=== PATIENT | female | born 1940 | race Asian ===

== ENCOUNTER 2022-03-27 09:32 | Inpatient (IN) | payer BC ==
[~2022-03-27] VITALS: Ht 149.9 cm; Wt 54.0 kg
[2022-03-27 11:05] LABS: BASOPHILS % (AUTO) 0.4 % (0-1); EOSINOPHILS # (AUTO) 0.1 X10'3 (0-0.9); HEMATOCRIT 39.3 % (35.0-45.0); HEMOGLOBIN 13.4 g/dl (12.0-16.0); LYMPHOCYTES # (AUTO) 1.8 X10'3 (1.1-4.8); LYMPHOCYTES % (AUTO) 16.9 % (21-51); MEAN CORPUSCULAR HEMOGLOBIN 32.2 PG (27.0-31.0); MEAN CORPUSCULAR HGB CONC 34.2 g/dL (33.0-36.5); MEAN CORPUSCULAR VOLUME 94.2 FL (78-98); MEAN PLATELET VOLUME 9.1 FL (7.4-10.4); MONOCYTES # (AUTO) 0.7 X10'3 (0-0.9); MONOCYTES % (AUTO) 6.4 % (2-12); NEUTROPHILS # (AUTO) 8.1 X10'3 (1.8-7.7); NEUTROPHILS % (AUTO) 75.3 % (42-75); PLATELET COUNT 215 X10'3 (140-440); RED BLOOD COUNT 4.17 X10'6 (4.20-5.60); RED CELL DISTRIBUTION WIDTH 12.3 % (11.5-14.5); WHITE BLOOD COUNT 10.7 X10'3 (4.5-11.0)
[2022-03-27] MEDS ORDERED: normal saline 1000ML IV soln IVB ONE (11:20)
[2022-03-27] MEDS ORDERED: ondansetron/PF 4mg/2ml inj IV ONE (11:20)
[2022-03-27 11:28] LABS: ALANINE AMINOTRANSFERASE 26 U/L (12-78); ALBUMIN 3.4 G/DL (3.4-5.0); ALKALINE PHOSPHATASE 85 IU/L (46-116); ANION GAP 10 (8-16); ASPARTATE AMINO TRANSFERASE 32 U/L (10-37); BILIRUBIN,TOTAL 0.3 MG/DL (0.1-1.0); BLOOD UREA NITROGEN 11 MG/DL (7-18); BUN/CREATININE RATIO 10.6 (6.6-38.0); CALCIUM 8.8 MG/DL (8.5-10.1); CHLORIDE 100 MMOL/L (99-107); CREATININE 1.04 MG/DL (0.40-0.90); GLUCOSE 94 MG/DL (70-104); LIPASE 122 U/L (73-393); POTASSIUM 3.2 MMOL/L (3.5-5.1); SODIUM 137 MMOL/L (135-145); TOTAL CARBON DIOXIDE 27.4 MMOL/L (24-32); TOTAL PROTEIN 6.9 G/DL (6.4-8.2); eGFR 51 ML/MIN
[2022-03-27] MEDS ORDERED: ketorolac trometh. 30mg/ml inj. IV ONE (12:00)
[2022-03-27 12:04] LABS: CLARITY,URINE CLOUDY (Clear); COLOR,URINE YELLOW (Yellow); GLUCOSE, URINE NEGATIVE (Neg); KETONES,URINE NEGATIVE (Neg); LEUKOCYTE ESTERASE ,URINE LARGE (Neg); NITRITES, URINE POSITIVE (Neg); OCCULT BLOOD,URINE SMALL (Neg); PROTEIN,URINE NEGATIVE (Neg)
[2022-03-27 12:07] LABS: UA COLLECTION TYPE CLN CATCH MIDSTREAM
--- NOTE | 2022-03-27 12:24 | NUR ---
PT TO CT.
[2022-03-27 12:43] LABS: SQUAMOUS EPITHELIAL CELL,UR MANY /LPF (FEW)
[2022-03-27 12:44] LABS: BACTERIA,URINE 4+ /HPF (Neg); TRANSITIONAL EPI CELLS,URINE MODERATE /HPF
--- NOTE | 2022-03-27 12:44 | NUR ---
I agree with Lindsay RAYMOND's General Assessment.
[2022-03-27 12:49] LABS: WBC CLUMPS,URINE MANY /HPF (NEGATIVE)
[2022-03-27 12:51] LABS: MUCUS STRANDS NONE SEEN /LPF (Neg); WBC,URINE TNTC /HPF (0-4)
[2022-03-27 12:52] LABS: RBC,URINE 0-2 /HPF (0-2)
[2022-03-27] MEDS ORDERED: piperacillin/tazo 3.375gm/50ml 50 ML IV ONE (13:45)
[2022-03-27] MEDS ORDERED: vancomycin/NS 1 GM ADD-VANTAGE 250 ML IV ONE (13:45)
[2022-03-27] MEDS ORDERED: HYDROcodone/acetaminophen 5mg/325mg tablet PO PRN (14:05)
[2022-03-27] MEDS ORDERED: bisacodyl 10mg suppository rectal RC PRN (14:05)
[2022-03-27] MEDS ORDERED: acetaminophen 325mg tablet PO PRN ×2 (14:05)
[2022-03-27] MEDS ORDERED: magnesium Cl slow-release 64mg tablet PO PRN (14:05)
[2022-03-27] MEDS ORDERED: morphine 2 MG/ML inj. syringe IV PRN (14:05)
[2022-03-27] MEDS ORDERED: diphenhydrAMINE 25mg capsule PO PRN (14:05)
[2022-03-27] MEDS ORDERED: mag hydrox/Alum hydrox/simeth 30ml oral suspension PO PRN (14:05)
[2022-03-27] MEDS ORDERED: magnesium 4gm in 100ml NS 100 ML IV PRN (14:05)
[2022-03-27] MEDS ORDERED: magnesium hydroxide 30ml (MOM) UD suspension PO PRN (14:05)
[2022-03-27] MEDS ORDERED: ondansetron/PF 4mg/2ml inj IV PRN (14:05)
[2022-03-27] MEDS ORDERED: potassium Cl 20 mEq SR tablet PO PRN ×2 (14:05)
[2022-03-27] MEDS ORDERED: acetaminophen 650mg rectal suppository RC PRN (14:05)
[2022-03-27] MEDS ORDERED: potassium Cl 40MEQ/1/2NS 520ml 520 ML IV PRN (14:05)
[2022-03-27] MEDS: normal saline 1000ml 1,000 ML IV SCH (14:22)
[2022-03-27] MEDS ORDERED: IBUP-1984 PO (15:17)
[2022-03-27] MEDS ORDERED: ACET325T55 PO (15:17)
[2022-03-27 15:27] LABS: HEMOGLOBIN A1C 5.5 % (4.5-6.2)
--- NOTE | 2022-03-27 16:29 | NUR ---
pt ambulated to restroom with minimal assistance.
[2022-03-27] MEDS: heparin, porcine 5000 units/ml vial SQ SCH (19:32)
[2022-03-27] MEDS: docusate sod 100mg capsule PO SCH (19:32)
[2022-03-27] MEDS: K and/or MAG REPLACEMENT MC SCH (19:33)
[2022-03-27] MEDS: piperacillin/tazo 3.375gm/50ml 50 ML IV SCH (22:27)
[2022-03-27] MEDS: HYDROcodone/acetaminophen 10/325mg tab PO PRN (22:28)
[2022-03-28] VITALS (29 sets, daily range): BP systolic 109–192; BP diastolic 46–90
--- NOTE | 2022-03-28 00:05 | NUR ---
RECEIVED PT FROM ER VIA [facility] FOLLOWING VERBAL REPORT. ASSUMED CARE.
[2022-03-28] MEDS: normal saline 1000ml 1,000 ML IV SCH ×3 (00:30→16:40)
[2022-03-28 00:31] LABS: CLARITY,URINE SLIGHTLY CLOUDY (Clear); COLOR,URINE YELLOW (Yellow); GLUCOSE, URINE NEGATIVE (Neg); KETONES,URINE NEGATIVE (Neg); LEUKOCYTE ESTERASE ,URINE SMALL (Neg); NITRITES, URINE POSITIVE (Neg); OCCULT BLOOD,URINE NEGATIVE (Neg); PH,URINE 6.5 (4.8-8.0); PROTEIN,URINE NEGATIVE (Neg)
[2022-03-28 00:41] LABS: UA COLLECTION TYPE NON-SPECIFIED
[2022-03-28] MEDS: morphine 2 MG/ML inj. syringe IV PRN ×2 (00:42→08:27)
[2022-03-28 00:47] LABS: BACTERIA,URINE 1+ /HPF (Neg); MUCUS STRANDS FEW /LPF (Neg); SQUAMOUS EPITHELIAL CELL,UR FEW /LPF (FEW); WBC CLUMPS,URINE FEW /HPF (NEGATIVE); WBC,URINE 20-30 /HPF (0-4)
[2022-03-28] MEDS ORDERED: pneumococcal 23-VAL P-sac vacc 25 mcg/0.5ml vial IMVAC ONE (02:00)
[2022-03-28] MEDS: piperacillin/tazo 3.375gm/50ml 50 ML IV SCH ×3 (05:20→21:37)
[2022-03-28] MEDS: heparin, porcine 5000 units/ml vial SQ SCH ×2 (06:31→21:38)
[2022-03-28 06:41] LABS: BASOPHILS % (AUTO) 0.5 % (0-1); EOSINOPHILS # (AUTO) 0.3 X10'3 (0-0.9); EOSINOPHILS % (AUTO) 3.7 % (0-6); HEMATOCRIT 35.9 % (35.0-45.0); HEMOGLOBIN 12.3 g/dl (12.0-16.0); LYMPHOCYTES # (AUTO) 2.2 X10'3 (1.1-4.8); LYMPHOCYTES % (AUTO) 25.6 % (21-51); MEAN CORPUSCULAR HEMOGLOBIN 32.6 PG (27.0-31.0); MEAN CORPUSCULAR HGB CONC 34.3 g/dL (33.0-36.5); MEAN PLATELET VOLUME 8.7 FL (7.4-10.4); MONOCYTES # (AUTO) 0.6 X10'3 (0-0.9); MONOCYTES % (AUTO) 6.3 % (2-12); NEUTROPHILS # (AUTO) 5.6 X10'3 (1.8-7.7); NEUTROPHILS % (AUTO) 63.9 % (42-75); PLATELET COUNT 194 X10'3 (140-440); RED BLOOD COUNT 3.78 X10'6 (4.20-5.60); RED CELL DISTRIBUTION WIDTH 12.5 % (11.5-14.5); WHITE BLOOD COUNT 8.8 X10'3 (4.5-11.0)
--- NOTE | 2022-03-28 06:47 | NUR ---
Problems reprioritized. Patient report given, questions answered & plan of care reviewed with
--- NOTE | 2022-03-28 07:06 | NUR ---
Patient in room [facility]. I have received report from Latonya BRIDGES and had the opportunity to ask questions and assume patient care.
[2022-03-28 07:11] LABS: ALANINE AMINOTRANSFERASE 39 U/L (12-78); ALBUMIN 2.9 G/DL (3.4-5.0); ALBUMIN/GLOBULIN RATIO 0.9 (1.1-1.5); ALKALINE PHOSPHATASE 74 IU/L (46-116); ANION GAP 7 (8-16); ASPARTATE AMINO TRANSFERASE 35 U/L (10-37); BILIRUBIN,TOTAL 0.4 MG/DL (0.1-1.0); BLOOD UREA NITROGEN 10 MG/DL (7-18); BUN/CREATININE RATIO 11.9 (6.6-38.0); CALCIUM 8.2 MG/DL (8.5-10.1); CHLORIDE 108 MMOL/L (99-107); CHOL/HDL RATIO 3.7 (0.00-4.99); CHOLESTEROL 132 MG/DL (0-200); CREATININE 0.84 MG/DL (0.40-0.90); GLUCOSE 103 MG/DL (70-104); HDL CHOLESTEROL 36 MG/DL (35-60); LDL CHOLESTEROL 89 MG/DL (50-100); PHOSPHORUS 3.6 MG/DL (2.3-4.5); POTASSIUM 3.8 MMOL/L (3.5-5.1); SODIUM 143 MMOL/L (135-145); TOTAL CARBON DIOXIDE 28.2 MMOL/L (24-32); TRIGLYCERIDES 61 MG/DL (20-135); eGFR 65 ML/MIN
[2022-03-28] MEDS: K and/or MAG REPLACEMENT MC SCH ×2 (08:00→20:00)
[2022-03-28] MEDS: docusate sod 100mg capsule PO SCH ×2 (08:00→21:38)
--- NOTE | 2022-03-28 11:30 | NUR ---
Patient report given to Paige BRIDGES in Recovery
[2022-03-28] MEDS ORDERED: FENTANYL CITRATE/PF 50 MCG/1 ML VIAL ONE ×2 (12:05→12:50)
[2022-03-28] MEDS ORDERED: sevoflurane 250ml liquid IH ONE (12:05)
[2022-03-28] MEDS ORDERED: LIDOcaine 2% (20mg/ml) 5ml vial ONE ×2 (12:06→12:18)
[2022-03-28] MEDS ORDERED: propofol inj 20 ML IV ONE ×2 (12:06→12:18)
[2022-03-28] MEDS ORDERED: rocuronium 10mg/ml inj IV ONE ×2 (12:06→12:18)
[2022-03-28] MEDS ORDERED: BUPIVAcaine 0.5% inj/PF 30 ML ONE (12:20)
[2022-03-28] MEDS ORDERED: ondansetron/PF 4mg/2ml inj ONE (12:49)
[2022-03-28] MEDS ORDERED: sugammadex 200mg/2ml injection IV ONE (12:49)
[2022-03-28] MEDS ORDERED: dexamethasone sod phosphate 4mg/ml inj. ONE (12:49)
[2022-03-28] MEDS ORDERED: BUPIVAcaine 0.5% inj/PF 30 ml vial IJ ONE (12:51)
[2022-03-28] MEDS ORDERED: HYDROmorphone/PF 0.2 MG/ML SYRINGE IV PRN ×2 (13:35)
[2022-03-28] MEDS ORDERED: ringers solution, lacted 1,000 ML IV SCH (13:35)
[2022-03-28] MEDS ORDERED: labetalol 20mg/4ml (5mg/ml) syringe IV PRN (13:35)
[2022-03-28] MEDS ORDERED: ondansetron/PF 4mg/2ml inj IV PRN (13:35)
[2022-03-28] MEDS ORDERED: acetaminophen 1,000mg/100ml IV 100 ML IV ONE (13:35)
[2022-03-28] MEDS ORDERED: morphine 2 MG/ML inj. syringe IV PRN (13:35)
[2022-03-28] MEDS ORDERED: naloxone 0.4 mg/ml inj ONE (13:47)
--- NOTE | 2022-03-28 14:56 | NUR ---
ANNE-MARIE PICKETT ROOMMATE NOTIFIED BY PHONE THAT PT WAS BEING ADMITTED Addendum: 03/28/22 at 1639 by Hayde Castro RN ENTERED BY MISTAKE - WRONG CHART
--- NOTE | 2022-03-28 15:44 | NUR ---
REPORT CALLED TO YULIYA BRIDGES PT TRANSPORTED WITH CHAIN FORMING MACHINE OPERATOR TO THE FLOOR IN HER HOSPITAL BED. PT COMPLAINS OF MILD ITCHING AND MILD ABD DISCOMFORT TECH AT BEDSIDE WHEN PT ARRIVED
--- NOTE | 2022-03-28 15:52 | NUR ---
Received patient report via phone from Rani BRIDGES in recovery will assume patient care when patient comes to the floor.
[2022-03-28] MEDS ORDERED: ketorolac tromethamine 15mg/ml inj. IV ONE (16:40)
--- NOTE | 2022-03-28 18:25 | NUR ---
Problems reprioritized. Patient report given, questions answered & plan of care reviewed with Kavya hubbard RN.
--- NOTE | 2022-03-28 19:05 | NUR ---
Assumed pt care, received report from Kavya BRIDGESchargemaster analyst. Addendum: 03/29/22 at 0310 by Ena Robbins RN Amended: Links added.
[2022-03-28] MEDS: HYDROcodone/acetaminophen 10/325mg tab PO PRN (21:50)
[2022-03-29] MEDS: normal saline 1000ml 1,000 ML IV SCH (01:58)
[2022-03-29] MEDS: HYDROcodone/acetaminophen 10/325mg tab PO PRN (05:40)
[2022-03-29] MEDS: piperacillin/tazo 3.375gm/50ml 50 ML IV SCH (05:43)
[2022-03-29 06:07] LABS: BASOPHILS % (AUTO) 0.1 % (0-1); EOSINOPHILS % (AUTO) 0 % (0-6); HEMATOCRIT 38.9 % (35.0-45.0); HEMOGLOBIN 13.2 g/dl (12.0-16.0); LYMPHOCYTES # (AUTO) 0.9 X10'3 (1.1-4.8); LYMPHOCYTES % (AUTO) 6.8 % (21-51); MEAN CORPUSCULAR HEMOGLOBIN 32.2 PG (27.0-31.0); MEAN CORPUSCULAR VOLUME 94.6 FL (78-98); MEAN PLATELET VOLUME 8.8 FL (7.4-10.4); MONOCYTES # (AUTO) 0.6 X10'3 (0-0.9); MONOCYTES % (AUTO) 4.1 % (2-12); NEUTROPHILS # (AUTO) 11.9 X10'3 (1.8-7.7); PLATELET COUNT 213 X10'3 (140-440); RED BLOOD COUNT 4.12 X10'6 (4.20-5.60); RED CELL DISTRIBUTION WIDTH 12.5 % (11.5-14.5); WHITE BLOOD COUNT 13.4 X10'3 (4.5-11.0)
[2022-03-29 06:34] LABS: ALANINE AMINOTRANSFERASE 127 U/L (12-78); ALBUMIN/GLOBULIN RATIO 0.9 (1.1-1.5); ALKALINE PHOSPHATASE 96 IU/L (46-116); ANION GAP 9 (8-16); ASPARTATE AMINO TRANSFERASE 115 U/L (10-37); BILIRUBIN,TOTAL 0.7 MG/DL (0.1-1.0); BLOOD UREA NITROGEN 10 MG/DL (7-18); BUN/CREATININE RATIO 12.5 (6.6-38.0); CALCIUM 8.5 MG/DL (8.5-10.1); CHLORIDE 105 MMOL/L (99-107); GLUCOSE 110 MG/DL (70-104); PHOSPHORUS 3.8 MG/DL (2.3-4.5); POTASSIUM 3.6 MMOL/L (3.5-5.1); SODIUM 140 MMOL/L (135-145); TOTAL CARBON DIOXIDE 25.6 MMOL/L (24-32); TOTAL PROTEIN 6.5 G/DL (6.4-8.2); eGFR 69 ML/MIN
--- NOTE | 2022-03-29 06:34 | NUR ---
Patient in room [facility]. I have received report from annette garcia and had the opportunity to ask questions and assume patient care.
--- NOTE | 2022-03-29 06:46 | NUR ---
Problems reprioritized. Patient report given, questions answered & plan of care reviewed with YULIANA Carr. Addendum: 03/29/22 at 0646 by Ena Robbins RN Amended: Links added.
[2022-03-29] MEDS: K and/or MAG REPLACEMENT MC SCH (06:57)
[2022-03-29 07:00] VITALS: BP 147/84
[2022-03-29] MEDS: docusate sod 100mg capsule PO SCH (08:24)
[2022-03-29] MEDS: heparin, porcine 5000 units/ml vial SQ SCH (08:25)
[2022-03-29 11:00] VITALS: BP 149/80
[2022-03-29] MEDS ORDERED: pneumococcal 23-VAL P-sac vacc 25 mcg/0.5ml vial IMVAC ONE (12:00)
[2022-03-29] MEDS ORDERED: AMOX-419 PO (14:52)
[2022-03-29] MEDS ORDERED: HYDR-3965 PO (14:52)
== END 2022-03-29 15:45 | disposition home or self-care (01) | DRG 418 ==
LOC: ER 09:32 → ED HOLD 14:17 → SUR 3N 03-28 00:23
PROVIDERS: ADMIT Family Medicine; ATTEND Family Medicine
PROC: 0FT44ZZ Resection of Gallbladder, Percutaneous Endoscopic Approach (ICD-10-PCS; principal; 2022-03-28 12:05)
DX: K80.00 Calculus of gallbladder with acute cholecystitis without obstruction (principal); N39.0 Urinary tract infection, site not specified; Z20.822 Contact with and (suspected) exposure to COVID-19; E87.6 Hypokalemia; Z28.21 Immunization not carried out because of patient refusal
CPT/HCPCS: 36415; 71045; 74176; 80053; 80061; 81001; 82948; 83036; 83605; 83690; 83735; 84100; 84145; 85025; 85610; 87040; 87081; 87088; 87811; 90732; 96361; 96374; 96375; 97161; 97530; 99285; A4215; A4615; A4618; A7000; G0378; J0131; J1100; J1644; J1885; J2270; J2310; J2405; J2543; J2704; J3010; J3370; J3490; J7030; J7120; S0020

== ENCOUNTER 2024-09-10 09:44 | Outpatient (CLI) | payer BC ==
[~2024-09-10 09:44] MED LIST: IODIXANOL 320 MG/ML INFUS..BTL 100ML IV ONE; NO HOME MEDS
[2024-09-10 11:02] LABS: BASOPHILS % (AUTO) 0.5 % (0-1); EOSINOPHILS # (AUTO) 0.2 X10'3 (0-0.9); EOSINOPHILS % (AUTO) 3.3 % (0-6); HEMATOCRIT 42.9 % (35.0-45.0); HEMOGLOBIN 14.5 g/dl (12.0-16.0); LYMPHOCYTES # (AUTO) 1.3 X10'3 (1.1-4.8); LYMPHOCYTES % (AUTO) 22.6 % (21-51); MEAN CORPUSCULAR HEMOGLOBIN 31.9 PG (27.0-31.0); MEAN CORPUSCULAR HGB CONC 33.8 g/dL (33.0-36.5); MEAN CORPUSCULAR VOLUME 94.2 FL (78-98); MEAN PLATELET VOLUME 9.8 FL (7.4-10.4); MONOCYTES # (AUTO) 0.4 X10'3 (0-0.9); MONOCYTES % (AUTO) 7.3 % (2-12); NEUTROPHILS # (AUTO) 3.9 X10'3 (1.8-7.7); NEUTROPHILS % (AUTO) 66.3 % (42-75); PLATELET COUNT 154 X10'3 (140-440); RED BLOOD COUNT 4.56 X10'6 (4.20-5.60); RED CELL DISTRIBUTION WIDTH 12.4 % (11.5-14.5); WHITE BLOOD COUNT 5.9 X10'3 (4.5-11.0)
[2024-09-10 11:15] LABS: APTT 29 SECONDS (22-32); INR 1.1 INR; PROTHROMBIN TIME 11.2 SECONDS (9.0-12.0)
[2024-09-10 11:25] LABS: BLOOD UREA NITROGEN 15 MG/DL (7-18); BUN/CREATININE RATIO 18.1 (10.0-20.0); CREATININE 0.83 MG/DL (0.40-0.90); eGFR 66 ML/MIN
[2024-09-10 11:27] LABS: ALANINE AMINOTRANSFERASE 17 U/L (12-78); ALBUMIN 3.8 G/DL (3.4-5.0); ALBUMIN/GLOBULIN RATIO 1.2 (1.1-1.5); ALKALINE PHOSPHATASE 98 IU/L (46-116); ANION GAP 13 (8-16); ASPARTATE AMINO TRANSFERASE 11 U/L (10-37); BILIRUBIN,TOTAL 0.9 MG/DL (0.1-1.0); CALCIUM 8.5 MG/DL (8.5-10.1); CHLORIDE 104 MMOL/L (99-107); GLUCOSE 111 MG/DL (70-104); POTASSIUM 3.9 MMOL/L (3.5-5.1); PRO BRAIN NATRIURETIC PEPTIDE 2579 PG/ML (0-450); SODIUM 142 MMOL/L (135-145); TOTAL CARBON DIOXIDE 24.9 MMOL/L (24-32)
[2024-09-10] MEDS ORDERED: metoprolol tartrate 1mg/ml inj IV ONE (11:54)
[2024-09-10 11:55] VITALS: BP 227/125; PULSE 103; RESP 18
[2024-09-10 12:00] VITALS: BP 220/118; PULSE 79; RESP 18
--- NOTE | 2024-09-10 13:15 | RADIOLOGY REPORT ---
DI CHEST,TWO VIEWS CLINICAL HISTORY: AV STENOSIS, SOB,CAROTID STENOSIS COMPARISON: None TECHNIQUE: Frontal and lateral view of the chest was obtained FINDINGS: Lines and Tubes: None Lungs: No focal consolidation. Pleura: No effusion. No pneumothorax. Cardiomediastinal contours: Unremarkable Bones: No acute osseous abnormality. IMPRESSION: No acute cardiopulmonary disease.
--- NOTE | 2024-09-10 15:09 | CONSULTATION REPORT ---
History of Present Illness Providers to CC CC: NORY ROUSE MD ~ Refering MD: Dr. Rouse History of Present Illness A Very pleasant 84yo woman with Hypertension, Hyperlipidemia, Heart failure with improved ejection fraction, Tobacco use,Severe Symptomatic Aortic Stenosis here to be evaluated in the TAVR clinic. She is accompanied by her sons and daughter. Report that she has definitely slowed down. Has noticed increased dyspnea on exertion, fatigue, and lower-extremity edema. States she is limited by back pains. Per family, she did have a urinary tract infection in April of this, has declined since then. Was previously having falls, but has not had any since June of this year. She denies any chest pain, syncope, dizziness/lightheadedness, bleeding, LE edema. Allergies: Coded Allergies: No Known Allergies (Unverified , 03/27/22) Active prescriptions Jardiance 10mg QD Aldactone 25mg QD Lisinopril 10mg QD Bisoprolol 10mg QD ASA 81mg QD Home Medications Home Medications Active Reported No Home Medications (Home Med List) Each Past Medical History Medical History Comment 1. Severe, Symptomatic Aortic Stenosis 2. Hypertensive heart disease 3. Hyperlipidemia 4. Chronic Low back pain 5. Heart failure with improved ejection fraction 6. Tobacco use Past Surgical History Surgical History Comment Denies any prior heart or lung surgeries Past Family History Family History: Patient reports no known family medical history. Past Social History Social History Comment Tobacco: 1/2 PPD Denies alcohol abuse Physical Exam General Appearance: alert, no apparent distress Respiratory: lungs clear Cardiovascular: regular rate, rhythm, systolic murmur (III/ SM RUSB/LUSB) Peripheral Pulses: 2+ radial (R), 2+ radial (L) Gastrointestinal: bowels sounds present Extremities: edema (1+ edema b/l LE to shins) Neurologic: oriented x4 Psychiatric: normal mood/affect Review of Systems ROS ROS Comments: A 14-point review of systems is positive as above. The rest of the review of systems has been done and found to be unrevealing. Results Results/Orders Results/Orders Hg 14.5 HCt 42.9, Cr 0.83 Echocardiogram: LVEF 50-55%, PV 4.03 m/s, MG 42 mmHg, ROHIT 0.88cm2. Mild MR. Coronary Angiogram: No significant obstructive CAD Carotid Ultrasound: No obstructive carotid disease EKG: Normal Sinus rhythm, QRS 101ms CT TAVR: Pending Diagram Lab Result Diagram: 09/10/24 1009 09/10/24 1009 Assessment/Plan Problems/Diagnosis: (1) Aortic stenosis Assessment & Plan: A Very pleasant 84yo woman with Hypertension, Hyperlipidemia, Heart failure with improved ejection fraction, Tobacco use,Severe Symptomatic Aortic Stenosis here to be evaluated in the TAVR clinic. She has severe, symptomatic aortic stenosis with NYHA Class III symptoms of dyspnea on exertion, fatigue. Patient appears to be a good candidate for a transfemoral transcatheter aortic valve replacement. --She has not seen a dentist in quite some time, so will be evaluated prior to valve replacement. --Pending TAVR CT Dr. Rouse, We thank you for allowing us the opportunity to help with the patient. They will see you back in the office shortly. KARL ROUSE MD Sep 10, 2024 15:08
--- NOTE | 2024-09-11 19:03 | RADIOLOGY REPORT ---
Procedure: CT CTA TAVR Reason for study/Clinical History: Chest pain, evaluate for dissection. Comparison Study: None Exam Date: 09/10/2024 11:51 AM TECHNIQUE: Multiplanar reformatted images were generated from volumetric data acquired on a multidetector CT [facility]. Cardiac gating was utilized. Arterial phase images were obtained through the chest, abdomen and pelvis following intravenous administration of contrast material. 100 mL visipaque [address] dose reduction techniques were utilized. 3-D reconstructions were performed on an independent work station. Radiation Dose Information: CT Dose: CTDI volume is 65 mGy. Dose-length product is 1867 mGy*cm FINDINGS: Vascular: Aortic measurements: Aortic annulus: 25.5 x 21.3 mm Sinus of valsalva: right cusp 28.3 mm, left cusp 27.4 mm, non-coronary cusp 34.1 mm Right coronary distance: 10.6 Left coronary distance: 16.7 ST junction 26.1 mm Ascending aorta 40.1 mm Aortic arch 26 mm Descending aorta 26 mm Aortic hiatus 23 mm Upper abdominal aorta 20 mm Minimal abdominal aorta 12.1 mm Right common iliac 5.96 mm, tortuosity index 1.04 Left common iliac 5.52 mm, tortuosity index 1.01 There is enlarged caliber of ascending aorta. No aortic dissection. Aortic arch anatomy is convention al. There is conventional coronary artery anatomy. Scattered calcified atherosclerotic plaque. No central pulmonary embolism. There is normal dimension of the main pulmonary artery. Heart is normal. There are no intracardiac filling defects. No pericardial effusion. Mediastinum: There is no significant intrathoracic or axillary lymphadenopathy by CT size criteria. Lungs: Atelectasis and consolidation in the lung bases left greater than right. Pleura: No effusion or pneumothorax. Chest wall: No acute abnormality. Abdomen and Pelvis: Liver: Hepatic cysts. Gallbladder: Surgically absent. Spleen: Normal in appearance. Pancreas: Normal in appearance. Adrenals: Normal in appearance. Kidneys: Normal in appearance. Bowel: Normal in appearance. Peritoneum: No free air or free fluid. Lymph nodes: Shotty retroperitoneal lymphadenopathy. Pelvic structures: No pelvic mass. Bones: Multiple thoracic and lumbar compression fractures. Some lumbar compression fractures are age indeterminate. IMPRESSION: 1. TAVR planning with vascular measurements as described above. 2. Ascending aortic aneurysm measuring up to 40 mm. 3. Atelectasis and consolidation in the lung bases left greater than right. Superimposed infection i s not excluded. Clinical correlation and continued follow-up is recommended. 4. Hepatic cysts. Shotty retroperitoneal lymphadenopathy. Multiple compression fractures in the thora cic and lumbar spine. Some lumbar spine compression fractures are age indeterminate. Consider furth er evaluation with MRI of the lumbar spine. HS:Y
== END 2024-09-10 23:59 | disposition home or self-care (01) ==
LOC: RAD 09:44
PROVIDERS: ATTEND Internal Medicine Cardiovascular Disease
DX: K76.89 Other specified diseases of liver (principal); M48.55XA Collapsed vertebra, not elsewhere classified, thoracolumbar region, initial encounter for fracture; J98.11 Atelectasis; I35.0 Nonrheumatic aortic (valve) stenosis; R06.02 Shortness of breath; I65.29 Occlusion and stenosis of unspecified carotid artery; Z90.49 Acquired absence of other specified parts of digestive tract
CPT/HCPCS: 36415; 71046; 71275; 74174; 75572; 80053; 83880; 85025; 85610; 85730; J3490; Q9967